=== PATIENT | female | born 1970 | race Caucasian/White ===

== ENCOUNTER 2017-03-12 05:47 | Day surgery (SDC) | payer OTHER ==
[~2017-03-12] VITALS: Ht 165.1 cm; Wt 68.2 kg
[~2017-03-12 05:47] MED LIST: IBUP200C6 PO
[2017-03-12] MEDS ORDERED: LACTATED RINGERS 1,000 ML IV SCH (06:17)
[2017-03-12] MEDS ORDERED: ACET325T14 PO (06:18)
[2017-03-12 06:19] VITALS: BP 103/58
[2017-03-12 06:34] LABS: HCG UR OBC PASS
[2017-03-12] MEDS ORDERED: NEOMY/POLYMYXIN B GU IRR. 1 ML IRRIG ONE (06:42)
[2017-03-12] MEDS ORDERED: BUPIVACAINE/PF 0.25% ONE (06:42)
[2017-03-12] MEDS ORDERED: EPINEPHRINE 1 MG/ML, 1ML ONE (06:42)
[2017-03-12] MEDS ORDERED: FENTANYL PF 250 MCG/5ML ONE (07:13)
[2017-03-12] MEDS ORDERED: MIDAZOLAM 1 MG/ML, 2ML ONE (07:14)
[2017-03-12] MEDS ORDERED: DEXAMETHASONE 4 MG/ML, 1ML ONE (07:25)
[2017-03-12] MEDS ORDERED: ONDANSETRON 2MG/ML, 2ML ONE (07:25)
[2017-03-12] MEDS ORDERED: SUCCINYLCHOLINE 20 MG/ML, 10ML ONE (07:25)
[2017-03-12] MEDS ORDERED: PROPOFOL 10 MG/ML, 20ML ONE (07:25)
[2017-03-12] MEDS ORDERED: CEFAZOLIN 1,000 MG ONE (07:25)
[2017-03-12] MEDS ORDERED: HYDROmorphone 1 MG/ML, 1ML IV PRN (08:00)
[2017-03-12] MEDS ORDERED: MEPERIDINE/PF 25MG/0.5ML IVPush PRN (08:00)
[2017-03-12] MEDS ORDERED: EPHEDRINE 50 MG/ML, 1ML IVPush PRN (08:00)
[2017-03-12] MEDS ORDERED: OXYcodone 5 MG/5 ML ORAL.SOL UDC PO PRN (08:00)
[2017-03-12] MEDS ORDERED: FENTANYL PF 100 MCG/2ML IV PRN (08:00)
[2017-03-12] MEDS ORDERED: ALBUTEROL SULFATE 2.5 MG/3 ML NPPB PRN (08:00)
[2017-03-12] MEDS ORDERED: ACETAMINOPHEN 325 MG TABLET PO PRN (08:00)
[2017-03-12] MEDS ORDERED: ONDANSETRON 2MG/ML, 2ML IVPush PRN (08:00)
[2017-03-12] MEDS ORDERED: PROMETHAZINE 25 MG/ML, 1ML IV PRN (08:00)
[2017-03-12] MEDS ORDERED: MIDAZOLAM 1 MG/ML, 2ML IV PRN (08:00)
[2017-03-12] MEDS ORDERED: ACETAMINOPHEN 325 MG/10.15 ML UDC ONE (09:33)
[2017-03-12] MEDS ORDERED: OXYcodone 5 MG/5 ML ORAL.SOL UDC ONE (09:33)
[2017-03-12] MEDS ORDERED: FENTANYL PF 100 MCG/2ML ONE (10:22)
== END 2017-03-12 13:50 ==
LOC: OUT 05:47
PROVIDERS: ATTEND Obstetrics & Gynecology Female Pelvic Medicine and Reconstructive Surgery
DX: N94.6 Dysmenorrhea, unspecified (principal); N92.1 Excessive and frequent menstruation with irregular cycle; N39.3 Stress incontinence (female) (male); J45.909 Unspecified asthma, uncomplicated
CPT/HCPCS: 52000; 58552; 81025; 88307; C1771; J0171; J0330; J0690; J1100; J2250; J2405; J2704; J3010; J3490; J7120